=== PATIENT | female | born 1970 | race African-American/Black ===

== ENCOUNTER 2017-08-10 12:19 | Day surgery (SDC) | payer BC ==
[2017-08-10] VITALS (13 sets, daily range): BP systolic 110–126; BP diastolic 69–82; PULSE 54–98; RESP 17–21; Ht 157.5 cm; Wt 99.0 kg
[~2017-08-10] VITALS: Ht 157.5 cm; Wt 99.0 kg
[~2017-08-10 12:19] MED LIST: CEFAZOLIN 2 GM/50 ML (PMX) 50 ML IVPB SCH; SOD CHLORIDE 0.9% 1,000 ML IV SCH
[2017-08-10] MEDS ORDERED: METO-429 PO (12:58)
[2017-08-10] MEDS ORDERED: DEXL60CA2 PO (12:59)
[2017-08-10] MEDS ORDERED: LINA145C PO (12:59)
[2017-08-10] MEDS ORDERED: PROPOFOL 20 ML ONE (14:02)
[2017-08-10] MEDS ORDERED: FENTAnyl 50 MCG/ML VIAL ONE (14:02)
[2017-08-10] MEDS ORDERED: CEFAZOLIN 1 GM INJ ONE (14:02)
[2017-08-10] MEDS ORDERED: MIDAZOLAM 1 MG/ML 2 ML INJ ONE (14:02)
[2017-08-10] MEDS ORDERED: BUPIVACAINE 0.25% (MPF) 30 ML INJ INJ ONE (14:21)
[2017-08-10] MEDS ORDERED: ONDANSETRON 4 MG INJ ONE (14:23)
[2017-08-10] MEDS ORDERED: METOCLOPRAMIDE 10 MG INJ ONE (14:23)
[2017-08-10] MEDS ORDERED: DEXAMETHASONE 4 MG/ML 1 ML INJ ONE (14:23)
[2017-08-10] MEDS ORDERED: KETOROLAC 30 MG INJ ONE (14:23)
--- NOTE | 2017-08-10 14:28 | OPR ---
Date/Time of Note Date/Time of Note DATE: 08/10/17 TIME: 14:25 Operative Report Procedure Date: Aug 10, 2017 Preoperative Diagnosis left ventral ganglion cyst Postoperative Diagnosis same Operation/Procedure Performed 1. excision of left ventral ganglion cyst 2 cm cyst 2 cm incision 2. localized adjacent tissue transfer with the use of skin flaps 2 sq cm defect 3. therapeutic injection of subcutaneous local anesthesia Surgeon Arthur Valentine MD [employer]per none Anesthesia Type: general Estimated Blood Loss: 0 - 10 ml's Transfusion none Specimen left ventral ganglion cyst Grafts/Implants none Complications none Indications This is a 46-year-old female with a left ventral ganglion cyst and the rest. She requests surgical excision. Risks alternatives benefits and percent were discussed the patient. Patient expressed understanding consents to the operation. Procedure Description Patient taken to the OR and prepped and draped in usual sterile fashion. Surgical timeout was performed. IV antibiotics given. Left ventricle wrist ganglion cyst is addressed and a transverse incision is made with a 15 blade. Blunt dissection was used to identify the cyst the cyst is excised using cautery along with the cyst contents and the base of the cyst. There is good hemostasis. Due to tissue defect localized adjacent tissue transfer with his skin flaps were performed. Multilayer closure with interrupted 3-0 Vicryl interrupted 4-0 Monocryl. Therapeutic subcutaneous local anesthesia is injected dry dressings and Dermabond is applied Kwaku VALENTINE Aug 10, 2017 14:28
[2017-08-10] MEDS ORDERED: HYDROCODONE/APAP (5/325) TAB PO ONE (14:30)
[2017-08-10] MEDS ORDERED: MEPERIDINE 25 MG INJ IV PRN (15:00)
[2017-08-10] MEDS ORDERED: METOCLOPRAMIDE 10 MG INJ IV PRN (15:00)
[2017-08-10] MEDS ORDERED: DIPHENHYDRAMINE 50 MG INJ IV PRN (15:00)
[2017-08-10] MEDS ORDERED: EPHEDrine SULFATE 50 MG/5 ML SYG IV PRN (15:00)
[2017-08-10] MEDS ORDERED: hydrALAzine 20 MG INJ IV PRN (15:00)
[2017-08-10] MEDS ORDERED: OXYCODONE/ACETAMINOPHEN (5/325) TAB PO PRN (15:00)
[2017-08-10] MEDS ORDERED: ONDANSETRON 4 MG INJ IV PRN (15:00)
[2017-08-10] MEDS ORDERED: HYDROmorphONE (0.2 MG/ML) 10ML SYG IV PRN ×3 (15:00)
[2017-08-10] MEDS ORDERED: LABETALOL HCL 20MG INJ IV PRN (15:00)
== END 2017-08-10 17:05 | disposition home or self-care (01) ==
LOC: SDS 12:19
PROVIDERS: ATTEND Surgery
DX: M67.432 Ganglion, left wrist (principal); I10 Essential (primary) hypertension
CPT/HCPCS: 25111; 80053; 85025; 85610; 85730; J0690; J1100; J1885; J2250; J2405; J2765; J3010; Z7512; Z7610